=== PATIENT | male | born 1955 | race Caucasian/White ===

== ENCOUNTER 2023-05-11 01:46 | Day surgery (SDC) | payer OTHER, SELFPAY ==
[2023-05-02 08:33] VITALS: BMI 35.4
--- NOTE | 2023-05-10 17:29 | PM.HPGS ---
History of Present Illness History of Present Illness Consent: Risks, benefits, and alternatives have been discussed and questions answered. Patient agrees to proceed with procedure. Chief complaint: neoplasm screening Narrative: Aries Hays is a 67 year old male referred for colon cancer screening. Recent Cologuard test was positive.This is his 1st colonoscopy. Review of Systems Review of Systems: All systems reviewed & are unremarkable except as noted in HPI and below PMFSH Past Medical History Medical History HLD (hyperlipidemia) HTN (hypertension) Family History Family History Father Hypertension, Onset Age: 85 Family history of kidney disease Family history of diabetes mellitus in first degree relative Diabetes mellitus, Onset Age: 85 Social History Social History Years smoked: 40 Smoking status: Heavy tobacco smoker Alcohol intake: current Substance use type: does not use Living arrangements: with family Spiritual care concerns: No Meds Home Medications and Allergies Home Medications Medication Instructions Recorded Confirmed Type sildenafil 100 mg tablet (Viagra) 100 mg PO DAILY PRN sexual 02/05/22 05/11/23 Rx activity #20 tabs blood sugar diagnostic (OneTouch #300 ea 06/21/22 05/11/23 Rx Verio test strips) dulaglutide 1.5 mg/0.5 mL 1.5 mg (0.5 mL) subcut WEEKLY #2 mL 09/13/22 05/11/23 Rx subcutaneous pen injector (Trulicity) testosterone cypionate 200 mg/mL 400 mg (2 mL) IM MONTHLY #1 ea 12/20/22 05/11/23 Rx intramuscular kit syringe with needle 3 mL 23 x 1 #12 ea 02/16/23 05/11/23 Rx (BD Eclipse Luer-Tomi) glipizide 10 mg tablet See Rx Instructions .Route 03/01/23 05/11/23 Rx .COMPLEX #180 tabs lisinopril 40 mg tablet See Rx Instructions .Route 03/01/23 05/11/23 Rx .COMPLEX #90 tabs metoprolol succinate 25 mg See Rx Instructions .Route 03/01/23 05/11/23 Rx tablet,extended release 24 hr .COMPLEX #270 tabs pioglitazone 30 mg tablet See Rx Instructions .Route 03/01/23 05/11/23 Rx .COMPLEX #90 tabs pravastatin 20 mg tablet See Rx Instructions .Route 03/01/23 05/11/23 Rx .COMPLEX #90 tabs sitagliptin phosphate 100 mg See Rx Instructions .Route 03/01/23 05/11/23 Rx tablet (Januvia) .COMPLEX #90 tabs tamsulosin 0.4 mg capsule See Rx Instructions .Route 03/01/23 05/11/23 Rx .COMPLEX #30 caps Allergies Allergy/AdvReac Type Severity Reaction Status Date / Time No Known Allergies Allergy Verified 05/11/23 06:42 Exam Const: General: alert Orientation/consciousness: patient oriented x3 Resp: Auscultation: clear to auscultation bilaterally Cardio: Rhythm: regular rhythm GI: GI Palp: Yes Soft to palpation and No Tenderness to palpation present (GI) Neuro: General: patient oriented x3 Assessment and Plan Assessment and plan (1) Colon cancer screening: Code(s): Z12.11 - Encounter for screening for malignant neoplasm of colon Status: Acute Assessment and Plan: Colonoscopy with possible biopsy or polypectomy or cautery or injection of substances.
[2023-05-11 06:43] VITALS: BP 158/96; PULSE 90; RESP 17; TEMP 36.1; O2SAT 95; BMI 34.1
[2023-05-11] MEDS: LACTATED RINGERS 1,000 ML 150 ML IV CONT (06:57)
[2023-05-11 06:58] LABS: Glucose Point of Care 158 mg/dl (65-105)
--- NOTE | 2023-05-11 07:51 | WPDANESEPPF ---
Anes - Initial Pre Proc Eval Procedure: Operation Date: 05/11/23 08:00 Proposed Procedures p Screening Colonoscopy - Inder Berumen MD Date/Time: 05/11/23 07:51 Surgeon: Inder Berumen MD Pre Op Diagnosis: neoplasm screening Patient Data Age: 67 Gender: M Height: 1.88 m Weight: 120.6 kg Last Vital Signs Temp 96.9 F L 05/11/23 06:43 Pulse 90 05/11/23 06:43 Resp 17 05/11/23 06:43 BP 158/96 H 05/11/23 06:43 Pulse Ox 95 05/11/23 06:43 O2 Del Method Room Air 05/11/23 06:43 Allergies Allergy/AdvReac Type Severity Reaction Status Date / Time No Known Allergies Allergy Verified 05/11/23 06:42 Home Medications Medication Instructions Recorded Confirmed Type sildenafil 100 mg tablet (Viagra) 100 mg PO DAILY PRN sexual 02/05/22 05/11/23 Rx activity #20 tabs blood sugar diagnostic (OneTouch #300 ea 06/21/22 05/11/23 Rx Verio test strips) dulaglutide 1.5 mg/0.5 mL 1.5 mg (0.5 mL) subcut WEEKLY #2 mL 09/13/22 05/11/23 Rx subcutaneous pen injector ([employer]) testosterone cypionate 200 mg/mL 400 mg (2 mL) IM MONTHLY #1 ea 12/20/22 05/11/23 Rx intramuscular kit syringe with needle 3 mL 23 x 1 #12 ea 02/16/23 05/11/23 Rx (BD Eclipse Luer-Tomi) glipizide 10 mg tablet See Rx Instructions .Route 03/01/23 05/11/23 Rx .COMPLEX #180 tabs lisinopril 40 mg tablet See Rx Instructions .Route 03/01/23 05/11/23 Rx .COMPLEX #90 tabs metoprolol succinate 25 mg See Rx Instructions .Route 03/01/23 05/11/23 Rx tablet,extended release 24 hr .COMPLEX #270 tabs pioglitazone 30 mg tablet See Rx Instructions .Route 03/01/23 05/11/23 Rx .COMPLEX #90 tabs pravastatin 20 mg tablet See Rx Instructions .Route 03/01/23 05/11/23 Rx .COMPLEX #90 tabs sitagliptin phosphate 100 mg See Rx Instructions .Route 03/01/23 05/11/23 Rx tablet (Januvia) .COMPLEX #90 tabs tamsulosin 0.4 mg capsule See Rx Instructions .Route 03/01/23 05/11/23 Rx .COMPLEX #30 caps Laboratory Tests 05/11/23 06:51 POC Capillary Glucose 158 H mg/dl (65-105) Patient hx anesthesia problems: none Family hx anesthesia problems: none Results Review: All pre-operative results and documents have been reviewed as part of the pre-operative evaluation. [facility] Past Medical History Medical History HLD (hyperlipidemia) HTN (hypertension) Family History Family History Father Hypertension, Onset Age: 85 Family history of kidney disease Family history of diabetes mellitus in first degree relative Diabetes mellitus, Onset Age: 85 Social History Social History Years smoked: 40 Smoking status: Heavy tobacco smoker Alcohol intake: current Substance use type: does not use Living arrangements: with family Spiritual care concerns: No Anes - Eval Final PreProcedure Day of Procedure 05/11/23 07:51 Patient weight: obese Heart: regular rate and rhythm Lungs: clear to auscultation Airway: Mallampati scale class III Neurological: alert and oriented Last oral intake: >/= 8 hours ASA classification: III Emergent: no Anesthetic plan: proceed Anesthesia type and monitoring: general GIVS and standard monitoring Results Review: All pre-operative results and documents have been reviewed as part of the pre-operative evaluation. Informed Consent: The patient's anesthetic plan and its attendant risks and benefits were discussed with the patient/family/POA. Questions were solicited and answers provided to the satisfaction of the patient/family/POA.
[2023-05-11] MEDS: SIMETHICONE ORAL SUSPENSION 20 MG/0.3 ML 30 ML BOTTLE 0.6 ML IRRIGATION (08:08)
[2023-05-11 08:22] VITALS: BP 158/92; PULSE 88; RESP 19; O2SAT 95
[2023-05-11 08:32] VITALS: BP 144/95; PULSE 89; RESP 20; O2SAT 97
[2023-05-11 08:42] VITALS: BP 158/92; PULSE 85; RESP 18; O2SAT 97
== END 2023-05-11 08:50 | disposition home or self-care (01) ==
PROVIDERS: PCP Emergency Medicine; Visit Provider Internal Medicine Gastroenterology
PROC: 0DJD8ZZ Inspection of Lower Intestinal Tract, Via Natural or Artificial Opening Endoscopic (ICD-10-PCS; CPT 45378; principal; 2023-05-11 08:00)
DX: Z12.11 Encounter for screening for malignant neoplasm of colon (principal); K62.1 Rectal polyp; K63.5 Polyp of colon; K57.30 Diverticulosis of large intestine without perforation or abscess without bleeding; R19.5 Other fecal abnormalities; I10 Essential (primary) hypertension; E78.5 Hyperlipidemia, unspecified; F17.200 Nicotine dependence, unspecified, uncomplicated; E66.9 Obesity, unspecified; Z68.34 Body mass index [BMI] 34.0-34.9, adult; Z79.899 Other long term (current) drug therapy; Z79.890 Hormone replacement therapy; Z79.84 Long term (current) use of oral hypoglycemic drugs
CPT/HCPCS: 45385; 45380; 82948; 88305; J2704; J7120

== ENCOUNTER 2024-05-28 09:15 | Outpatient (RCR) | payer OTHER, SELFPAY | END 2024-05-28 10:43 | disposition home or self-care (01) | LOC: ANHDMC 09:15 | PROVIDERS: PCP Emergency Medicine; Visit Provider Emergency Medicine | DX: E11.65 Type 2 diabetes mellitus with hyperglycemia (principal); Z71.89 Other specified counseling | CPT/HCPCS: 36415; 80053; 80061; 82043; 82306; 83036; 95250; G0108 ==

== ENCOUNTER 2024-05-28 10:39 | Outpatient (CLI) | payer OTHER, SELFPAY ==
[2024-05-28 11:18] LABS: Alanine Aminotransferase 29 U/L (6-50); Albumin Level 4.6 g/dL (3.5-5.1); Alkaline Phosphatase 82 U/L (38-126); Anion Gap 8 mmol/L (4-12); Aspartate Amino Transferase 29 U/L (17-59); Bilirubin,Total 0.6 mg/dL (0.2-1.3); Blood Urea Nitrogen 31 mg/dL (9-20); Calcium 9.5 mg/dL (8.4-10.2); Carbon Dioxide 31 mmol/L (22-30); Chloride 100 mmol/L (98-107); Cholesterol 175 mg/dL (0-200); Estimated Glomerular Filt Rate 60; Glucose 161 mg/dL (65-110); HDL Direct 42 mg/dL; Potassium 4.8 mmol/L (3.4-5.0); Sodium 139 mmol/L (137-145); Triglycerides 186 mg/dL (<150)
[2024-05-28 11:29] LABS: LDL Cholesterol Direct 100 mg/dL
[2024-05-28 11:51] LABS: Creatinine Urine 112.1 mg/dL
[2024-05-28 12:24] LABS: Vitamin D 25 Hydroxy 34.2 ng/mL
[2024-05-28 12:33] LABS: MALB Creatinine Ratio 454.1 mg/g (0-30)
[2024-05-30 12:12] LABS: Hemoglobin A1C 9.1 % (<5.7)
== END 2024-05-28 10:40 | disposition home or self-care (01) ==
PROVIDERS: PCP Emergency Medicine; Visit Provider Emergency Medicine
DX: E11.9 Type 2 diabetes mellitus without complications (principal); E78.5 Hyperlipidemia, unspecified; E55.9 Vitamin D deficiency, unspecified
CPT/HCPCS: 36415; 80053; 80061; 82043; 82306; 83036

== ENCOUNTER 2024-06-19 09:04 | Outpatient (RCR) | payer OTHER, SELFPAY | END 2024-09-10 10:14 | disposition home or self-care (01) | LOC: ANHDMC 09:04 | PROVIDERS: PCP Emergency Medicine; Visit Provider Emergency Medicine | DX: E11.65 Type 2 diabetes mellitus with hyperglycemia (principal); Z71.89 Other specified counseling | CPT/HCPCS: G0108 ==

== ENCOUNTER 2025-06-25 09:16 | Outpatient (CLI) | payer MEDICARE, SELFPAY ==
--- OUTSIDE RECORDS SUMMARY | 2025-06-25 09:37 | XMS_ITS | Encounter Summary ---
Author Organization [facility] Address [address] [place] [address] Care Team Providers Care Board Certified Orthodontist Name Role Phone Adriel Soriano MD Primary Care Provider [phone] Encounter Details Date Type Department Care Team (Late st Contact Info) Description 01/02/2002 Outpatient Historical [facility] Internal Medicine [facility] [address] [facility] [address] [place] [phone] [place] [address] [place] [address] Social History Tobacco Use Types Packs/Day Years Used Date Smoking Tobacco: Never Assessed Sex and Gender Information Value Date Recorded Sex Assigned at Not on file 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
--- OUTSIDE RECORDS SUMMARY | 2025-06-25 09:37 | XMS_ITS | Clinical Summary ---
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 Gender Identity Not on file Sexual Orientation Not on file Plan of Treatment Health Maintenance Due Date Last Done Comments DTAP/TDAP/TD VACCINES (1 - Tdap) 1973 COLORECTAL SCREENING 1999 Colorectal Cancer Screening 1999 FIT-DNA Q 3 years 1999 FIT/FOBT Q 1 year 1999 Flex Sig/CT Colonography Q 5 years 1999 PNEUMOCOCCAL VACCINE 50+ YEARS (1 of 1 - PCV) 08/19/20 04 ZOSTER VACCINE (1 of 2) 2004 INFLUENZA VACCINE (#1) 2025 RSV VACCINE (60+ or ) (1 - 1-dose 75+ series) 2029 Care Teams Commodity Broker Relationship Specialty [place] [address] [place], [place] [id number] PCP - General 08/20/02
--- OUTSIDE RECORDS SUMMARY | 2025-06-25 09:37 | XMS_ITS | Patient Health Record ---
Author Organization [facility] Address [address] [place] [address] Care Team Providers Care Count Room Clerk Name Role Phone Angelo Jason Primary Care Provider [phone] Reason For Referral No Information Immunizations Vaccine Route Administration Date Status Comme nts COVID-19 Moderna 1ST IM Intramuscular 12/25/2020 Administered EUA date 0. Screening reviewed and consent signed. Patient tolerated well. COVID-19 Moderna 2nd IM Intramuscular 01/22/2021 Administered Plan Of Treatment No Information Insurance Providers Payer Name Payer Address Payer Phone Subscriber Number Group Number Insured Name Patient Relationship to Insured Coverage Start Date Coverage End Date [employer] [address] [place] [id number] Aries Hays Self - patient is the insured 1
--- OUTSIDE RECORDS SUMMARY | 2025-06-25 09:37 | XMS_ITS | Encounter Summary ---
[facility] Organization [facility] Address [address] [place] [address] Care Team Providers Care Merchandising Representative Name Role Phone Adriel Soriano MD Primary Care Provider [phone] Encounter Details Date Type Department Care Team (Late st Contact Info) Description 08/14/2002 Outpatient Historical [facility] Support Serv. ([facility]) [address] 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
--- OUTSIDE RECORDS SUMMARY | 2025-06-25 09:37 | XMS_ITS | Encounter Summary ---
Author Organization [facility] Address [address] [place] [address] Care Team Providers Care Engine Generator Assembler Name Role Phone Adriel Soriano MD Primary Care Provider [phone] Encounter Details Date Type Department Care Team (Late st Contact Info) Description 02/15/2000 Outpatient Historical [facility] Internal Medicine [facility] [address] [address] [facility] [address] [place] [phone] [place] [address] [place] [address] Social History Tobacco Use Types Packs/Day Years Used Date Smoking Tobacco: Never Assessed Sex and Gender Information Value Date Recorded Sex Assigned at Not on file 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
--- OUTSIDE RECORDS SUMMARY | 2025-06-25 09:37 | XMS_ITS | Clinical Summary ---
Author Organization [facility] [address] Address [address] [place] [phone] Care Team Providers Care Commercial Horticulture Instructor Name Role Phone Lawrence Ibarra MD Primary Care Provide r Allergies No known active allergies Medications glipiZIDE (GLUCOTROL) 10 mg tablet 3 Active lisinopriL (PRINIVIL,ZESTR IL) 40 mg tablet 3 Active pioglitazone (ACTOS) 30 mg tablet 3 Active pravastatin (PRAVACHOL) 20 mg tablet 3 Active Januvia 100 mg tablet 3 Active OneTouch Verio test strips strip 3 Active SEMGLEE-yfgn 100 unit/mL (3 mL) pen for injection Inject 10,000 Units under the skin daily 4 Active tamsulosin (FLOMAX) 0.4 mg extended release capsule Take 1 capsule (0.4 mg total) by mouth daily 4 Active Ozempic 2 mg/dose (8 mg/3 mL) pen injector injection Inject 2 mg under the skin daily 4 Active testosterone cypionate (DEPO-TESTOTERO NE) 200 mg/mL injection Inject 1 mL (200 mg total) into the muscle as instructed every 28 (twenty-eight) days 5 Active metoprolol XL (TOPROL-XL) 100 mg 24 hr tablet Take 1 tablet (100 mg total) by mouth daily 5 Active Mounjaro 7.5 mg/0.5 mL pen injector injection Inject 0.5 mL (7.5 mg total) under the skin Active Hospital, Clinic, or Other Facility Administered Medication Ordered Dose Route Frequency Start Date End Date Status lidocaine (XYLOCAINE) 20 mg/mL (2 %) injection 3 mLIndications:Admini stration of Local Anesthesia 3 mL One-Time Injection 06/19/2025 Ended methylPREDNISolone acetate (DEPO-medrol) injection 80 mgIndications:Primar y osteoarthritis of right knee 80 mg intra-artic One-Time Injection 06/19/2025 5 Ended Active Problems No known active problems Encounters Date Type Department Care Team Description 06/20/2025 Telephone [facility] Orthopedic and Sports Medicine [address] [place] [phone] Jensen Guevara PA 06/19/2025 10:15 AM CDT Office Visit [facility] Orthopedic and Sports Medicine [address] [place] [phone] Jensen Guevara PA Primary osteoarthritis of right knee (Primary Dx) from Last 3 Months Surgical History Surgery Date Site/Laterality Comments HERNIA REPAIR CARPAL TUNNEL RELEASE Medical History Medical History Date Comments Diabetes mellitus (HCC) Family History Medical History Relation Name Comments No Known Problems Brother No Known Problems Daughter No Known Problems Father No Known Problems Mother No Known Problems Sister Relation Name Status Comments Brother Daughter Father Mother Sister Social History Tobacco Use Types Packs/Day Years Used Date Smoking Tobacco: Former Cigarettes Tobacco Cessation:Counseling Given: Not Answered AUDIT-C Answer Date Recorded Q1: How often do you have a drink containing alcohol? Never 06/19/2025 Q2: How many drinks containi ng alcohol do you have on a typical day when you are drinking? Patient does not drink Q3: How often do you have si x or more drinks on one occasion? Never 06/19/2025 Sex and Gender Information Value Date Recorded Sex Assigned at Not on file Legal Sex Male 3:08 PM CDT Gender Identity Not on file Sexual Orientation Not on file Obstetrics History Last Filed Vital Signs Vital Sign Reading Time Taken Comments Blood Pressure 132/73 06/19/2025 10:26 AM CDT Pulse 79 06/19/2025 10:26 AM CDT Temperature - - Respiratory Rate - - Oxygen Saturation - - Inhaled Oxygen Concentration - - Weight 127 kg (280 lb) 06/19/2025 10:26 AM CDT Height 186.7 cm (6' 1.5) 06/19/2025 10:26 AM CD T Body Mass Index 36.44 06/19/2025 10:26 AM CDT Plan of Treatment Health Maintenance Due Date Last Done Comments Colon Cancer Screening-Colonoscopy 1954 Depression Screening 1954 Fall Risk Assessment 1954 Hepatitis C Screening 1954 DTaP/Tdap/Td Vaccine (1 - Tdap) 1965 Hepatitis B Screening 1972 Pneumococcal vaccine 65+ (1 of 1 - PCV) 2004 Zoster Vaccine (1 of 2) 2004 Well Visit 65+ 2019 Covid-19 Vaccine ( season) 2024 11/08/2021, 01/22/2021, 12/25/2020 Influenza Vaccine (#1) 2025 10/28/2022 Abdominal Aortic Aneurysm (A AA) Screen Completed 11/02/2024 Procedures Procedure Name Priority Date/Time Associated Diagnosis Comments [place] ARTHROCENTESIS ASPIR&/INJ MAJOR JT/BURSA W/O US Routine 06/19/2025 10:15 AM CDT Primary osteoarthritis of right knee CT ABDOMEN PELVIS WO CONTRAST Schedule Routine, Read Routine (OP Routine) 11/02/2024 6:28 AM TECHNICAL MARKETING ENGINEER Abdominal pain, unspecified abdominal location from Last 3 Months or Most Recently Relevant to Health Maintenance Results * [place] ARTHROCENTESIS ASPIR&/INJ MAJOR JT/BURSA W/O US (06/19/2025 10:15 AM CDT) Narrative Jensen Guevara PA - 06/19/2025 10:15 AM CDT Jensen Guevara PA 06/19/2025 10:45 AM Large Joint (Hip, Knee, Shoulder) Injection: R knee Performed by: Jensen Guevara PA Authorized by: Jensen Guevara PA Large Joint Injection/Aspiration: Consent Given by: Patient Timeout: prior to procedure the correct patient, procedure, and site was verified Verbal consent obtained: Yes Supporting Documentation: Indications: Pain Procedure Details: Location: Knee Site: R knee Prep: patient was prepped using a clean technique Needle Size: 22 G Approach: Anteromedial Ultrasound guided: No Fluroscopic guidance: No Medications: 80 mg methylPREDNISolone acetate 80 mg/mL; 3 mL lidocaine 20 mg/mL (2 %) Patient tolerance: Patient tolerated the procedure well with no immediate complications us Jensen HERNANDEZ IN CLINIC/BEDSIDE ORDERABLE S Final Result * CT Abdomen Pelvis WO Contrast (11/02/2024 6:28 AM TECHNICAL MARKETING ENGINEER) Anatomical Region Laterality Modality Body N/A Computed Tomogra phy 11/04/2024 11:5 0 AM TECHNICAL MARKETING ENGINEER Narrative 11/04/2024 11:53 AM TECHNICAL MARKETING ENGINEER EXAM DESCRIPTION: CT ABDOMEN PELVIS WO CONTRAST REASON FOR STUDY: R10.9 Per patient, gurgling noise mostly on LLQ during breathing for many years. Hx of Hernia with hernia repair 30 years ago. TECHNIQUE: CT scan of the abdomen and pelvis performed without intravenous and without oral contrast using helical scanning technique. Reconstructed coronal and sagittal MPR images reviewed. All images stored on PACS. Automated exposure control was used as a dose optimization technique for this examination. COMPARISON: None FINDINGS: The sensitivity for detection of visceral lesions is diminished without the use of intravenous contrast. LOWER CHEST: No significant pulmonary abnormalities. No effusion. LIVER: Normal size. No identified cystic or solid masses. GALLBLADDER: Multiple stones are present in the gallbladder lumen. No gallbladder wall thickening or pericholecystic fluid is seen. BILE DUCTS: No intrahepatic or extrahepatic ductal dilatation. SPLEEN: Normal size. No focal lesions. PANCREAS: No identified cystic or solid masses. No significant calcifications. No adjacent inflammation or peripancreatic fluid collections. Pancreatic duct not dilated. ADRENALS: Normal. KIDNEYS/URINARY TRACT: There is an 11 mm cyst in the mid left kidney. No stones. No hydronephrosis or hydroureter. Urinary bladder is partially decompressed with nonspecific bladder wall thickening noted.. GI: No dilated bowel loops. No obvious wall thickening. Numerous sigmoid diverticular seen. There is no evidence of acute diverticulitis. PERITONEUM: No ascites or free air. RETROPERITONEUM: No mass or adenopathy. REPRODUCTIVE: No significant abnormality. VASCULATURE: No abdominal aortic aneurysm. MUSCULOSKELETAL: No significant abnormality. OTHER: There are bilateral fat containing inguinal hernias. IMPRESSION: 1. Diverticulosis without evidence of diverticulitis. 2. Gallstones without evidence of acute cholecystitis. 3. Simple left renal cyst. 4. Fat containing bilateral inguinal hernias. THIS IS AN ELECTRONICALLY VERIFIED FINAL REPORT 11/04/2024 11:53 AM - Electronically signed by Fausto Mandujano M.D. BS: RAMON Report ID: [id number] Reading Location: [id number] Procedure Note Fausto Mandujano MD - 11/04/2024 EXAM DESCRIPTION: CT ABDOMEN PELVIS WO CONTRAST REASON FOR STUDY: R10.9 Per patient, gurgling noise mostly on LLQ during breathing for many years.Hx of Hernia with hernia repair 30 years ago. TECHNIQUE: CT scan of the abdomen and pelvis performed without intravenousand without oral contrast using helical scanning technique. Reconstructed coronal and sagittal MPR images reviewed. All images stored on PACS.Automated exposure control was used as a dose optimization technique for this examination. COMPARISON: None FINDINGS: The sensitivity for detection of visceral lesions is diminished without the use of intravenous contrast. LOWER CHEST: No significant pulmonary abnormalities. No effusion. LIVER: Normal size. No identified cystic or solid masses. GALLBLADDER: Multiple stones are present in the gallbladder lumen. No gallbladder wall thickening or pericholecystic fluid is seen. BILE DUCTS: No intrahepatic or extrahepatic ductal dilatation. SPLEEN: Normal size. No focal lesions. PANCREAS: No identified cystic or solid masses. No significant calcifications. No adjacent inflammation or peripancreatic fluidcollections. Pancreatic duct not dilated. ADRENALS: Normal. KIDNEYS/URINARY TRACT: There is an 11 mm cyst in the mid left kidney.No stones. No hydronephrosis or hydroureter. Urinary bladder is partially decompressed with nonspecific bladder wall thickening noted.. GI: No dilated bowel loops. No obvious wall thickening. Numeroussigmoid diverticular seen. There is no evidence of acute diverticulitis. PERITONEUM: No ascites or free air. RETROPERITONEUM: No mass or adenopathy. REPRODUCTIVE: No significant abnormality. VASCULATURE: No abdominal aortic aneurysm. MUSCULOSKELETAL: No significant abnormality. OTHER: There are bilateral fat containing inguinal hernias. IMPRESSION: 1. Diverticulosis without evidence of diverticulitis. 2. Gallstones without evidence of acute cholecystitis. 3. Simple left renal cyst. 4. Fat containing bilateral inguinal hernias. THIS IS AN ELECTRONICALLY VERIFIED FINAL REPORT 11/04/2024 11:53 AM - Electronically signed by Fausto Mandujano M.D. BS: BS Report ID: [id number] Reading Location: [place] [address] Lawrence Ibarra MD IMG CT PROCEDURES Fin al Result from Last 3 Months or Most Recently Relevant to Health Maintenance Insurance [facility] MEDICARE [facility] Address[facility] [id number] [place] [phone] Care Teams Commercial Horticulture Instructor Relationship Specialty Start Date End Date Lawrence Ibarra MD [address] [place] [address] PCP - General Emergency Medicine 09/16/23
--- OUTSIDE RECORDS SUMMARY | 2025-06-25 09:37 | XMS_ITS | Encounter Summary ---
Author Organization [facility] Address [address] [place] [address] Care Team Providers Care Export Sales Manager Name Role Phone Adriel Soriano MD Primary Care Provider [phone] Encounter Details Date Type Department Care Team (Late st Contact Info) Description 12/19/2001 Outpatient Historical [facility] Internal Medicine [facility] [address] [facility] [address] [facility] [address] [place] [phone] [place] [address] [place] [address] Social History Tobacco Use Types Packs/Day Years Used Date Smoking Tobacco: Never Assessed Sex and Gender Information Value Date Recorded Sex Assigned at Not on file 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
--- OUTSIDE RECORDS SUMMARY | 2025-06-25 09:37 | XMS_ITS | Referral Summary ---
Author Organization [address] Address [address] [place] [phone] Care Team Providers Care Orthodontic Assistant Name Role Phone Lawrence Ibarra MD Primary Care Provide r Encounters Date Type Department Care Team Description 06/20/2025 Telephone [facility] Orthopedic and Sports Medicine [address] [place] [phone] Jensen Guevara PA 06/19/2025 10:15 AM CDT Office Visit [facility] Medical [facility] Orthopedic and Sports Medicine [address] [place] [phone] Jensen Guevara PA Primary osteoarthritis of right knee (Primary Dx) from Last 3 Months Allergies No known active allergies Medications glipiZIDE [...] mL (7.5 mg total) under the skin 5 Active Hospital, Clinic, or Other Facility Administered Medication Ordered Dose Route Frequency Start Date End Date Status lidocaine (XYLOCAINE) 20 mg/mL (2 %) injection 3 mLIndications:Admini stration of Local Anesthesia 3 mL One-Time Injection 06/19/2025 5 Ended methylPREDNISolone acetate (DEPO-medrol) injection 80 mgIndications:Primar y osteoarthritis of right knee 80 mg intra-artic One-Time Injection 06/19/2025 5 Ended Active Problems No known active problems Social History Tobacco Use Types Packs/Day Years [...] on file Sexual Orientation Not on file Last Filed Vital Signs Vital Sign Reading [...] 06/19/2025 10:26 AM CDT Plan of Treatment Not on file Procedures Procedure Name Priority Date/Time Associated Diagnosis Comments DC ARTHROCENTESIS ASPIR&/INJ MAJOR JT/BURSA W/O US Routine 06/19/2025 10:15 AM CDT Primary osteoarthritis of right knee CT ABDOMEN PELVIS WO CONTRAST Schedule Routine, Read Routine (OP Routine) 11/02/2024 6:28 AM STRUCTURAL IRONWORKER Abdominal pain, unspecified abdominal location from Last 3 Months or Most Recently Relevant to Health Maintenance Results * DC ARTHROCENTESIS ASPIR&/INJ MAJOR JT/BURSA W/O US (06/19/2025 [...] the procedure well with no immediate complications Jensen HERNANDEZ IN CLINIC/BEDSIDE ORDERABLE S Final Result * CT Abdomen Pelvis WO Contrast (11/02/2024 6:28 AM STRUCTURAL IRONWORKER) Anatomical Region Laterality Modality Body N/A Computed Tomogra phy 11/04/2024 11:5 0 AM STRUCTURAL IRONWORKER Narrative 11/04/2024 11:53 AM STRUCTURAL IRONWORKER EXAM DESCRIPTION: CT ABDOMEN PELVIS WO CONTRAST [...] Fausto Mandujano M.D. BS: RAMON Report ID: [id number] Reading Location: [id number] Procedure Note Fausto Mandujano MD - 11/04/2024 [...] Fausto Mandujano M.D. BS: RAMON Report ID: [id number] Reading Location: [place] [address] Lawrence Ibarra MD IMG CT PROCEDURES Fin al Result from Last 3 Months or Most Recently Relevant to Health Maintenance Insurance [facility] MEDICARE ADVANTAGE [facility] Address: [address] [address] Care Teams Orthodontic Assistant Relationship Specialty Start Date End Date Lawrence Ibarra MD [address] [place] [address] PCP - General Emergency Medicine 09/16/23
--- OUTSIDE RECORDS SUMMARY | 2025-06-25 09:37 | XMS_ITS | Encounter Summary ---
Author Organization [facility] Address [address] [place] [address] Care Team Providers Care Mixing And Molding Machine Operator Name Role Phone Adriel Soriano MD Primary Care Provider [phone] Encounter Details Date Type Department Care Team (Late st Contact Info) Description 01/29/2003 Outpatient Historical [facility] Internal Medicine [facility] [address] 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
--- OUTSIDE RECORDS SUMMARY | 2025-06-25 09:37 | XMS_ITS | Clinical Summary ---
Author Organization [facility] Address [address] [place] [address] Care Team Providers Care Underwater Hunter Trapper Name Role Phone Unavailable Primary Care Provider Unavailabl e Social History Tobacco Use Types Packs/Day Years Used Date Smoking Tobacco: Never Assessed Sex and Gender Information Value Date Recorded Sex Assigned at Not on file Legal Sex Male 7:22 PM CDT Gender Identity Not on file Sexual Orientation Not on file Plan of Treatment Health Maintenance Due Date Last Done Comments Colorectal Cancer Screening Colonoscopy (10 Years) 1954 Hepatitis C 1972 DTaP, Tdap and Td Vaccines ( 1 - Tdap) 1973 Pneumococcal Vaccine: 50+ Ye ars (1 of 1 - PCV) 2004 Zoster Vaccines (1 of 2) 2004 COVID-19 Vaccine ( - 2023-2 5 season) 2024 RSV Immunization or 60+ Years (1 - 1-dose 75+ series) 2029 Meningococcal B Vaccine Aged Out No l onger eligible based on patient's age to complete this topic Meningococcal Vaccine Aged Out No guanakito ryan eligible based on patient's age to complete this topic RSV Immunizations Under 20 Months Aged Out No longer eligible based on patient's age to complete this topic
--- OUTSIDE RECORDS SUMMARY | 2025-06-25 09:37 | XMS_ITS | Encounter Summary ---
Author Organization [employer] Address [address] [place] [address] Care Team Providers Care Water Jet Loom Fixer Name Role Phone Adriel Soriano MD Primary Care Provider [phone] Encounter Details Date Type Department Care Team (Latest Contact Info) Description 08/20/2002 Outpatient Historical [facility] Aristides Colvin MD [address] [facility] [address], [place] [phone] UMBILICAL HERNIA W OBSTR (Primary Dx) Social History Tobacco Use Types Packs/Day Years Used Date Smoking Tobacco: Never Assessed Sex and Gender Information Value Date Recorded Sex Assigned at Not on file Legal Sex Male 3:19 AM MANAGER JAVA Gender Identity Not on file Sexual Orientation Not on file documented as of this encounter Plan of Treatment Not on file documented as of this encounter Visit Diagnoses Diagnosis Umbilical hernia with obstruction- Primary documented in this encounter Care Teams Water Jet Loom Fixer Relationship Specialty [place] [address] [facility] [place] [address] PCP - General 08/20/02 documented as of this encounter
--- NOTE | 2025-07-15 14:02 | WPDHOMESLEEP ---
Sleep Study - Home Unattended Date of Study: 06/25/25 Ordering Provider: Lawrence Ibarra MD Interpreting Provider: Magdalena Thompson, DO Home Sleep Study Type: Watch PAT Height: 1.88 m Weight: 127.006 kg Body Mass Index: 35.9 Neck Circumference (inches): 18.25 [place]: 5 Reason for Sleep Study Daytime hypersomnia Sleep History The patient is a 69-year-old male who had a sleep study ordered by his primary care physician for evaluation of sleep apnea. The patient occasionally snores, and it is occasionally loud enough that others complain. He occasionally has trouble sleeping when he has a cold. He denies waking up gasping for air throughout the night. He rarely has breathing problems at night observed by himself or others. He rarely sweats excessively at night. He occasionally has heart palpitations or irregular heartbeats during the night. He occasionally falls asleep during the day, but rarely while driving. He denies sleep paralysis, cataplexy, and hypnagogic/hypnopompic hallucinations. He denies having trouble at school or work due to sleepiness. He rarely has nightmares. He occasionally remembers his dreams. He denies having fears of going to sleep. He rarely has thoughts racing through his mind. He occasionally feels sad, depressed, and anxious. He occasionally has muscular tension. He rarely notices parts of his body jerk. He denies kicking during the night. He denies having crawling and aching feelings in his legs and denies having leg pain during the night. He rarely grinds his teeth during sleep but never awakens with morning jaw pain. He is rarely bothered by pain during the day but never awakened by pain during the night. He occasionally wakes up feeling stiff in the morning. He occasionally wakes up with sore or achy muscles. He occasionally wakes up with pain in the neck, spine, and other joints. He goes to bed at 10 p.m. every night. The amount of time it takes for him to fall asleep is variable. He wakes up 3 to 4 times throughout the night to urinate and is able to fall back asleep within 5 minutes. He wakes up at 7 a.m. every morning. He typically gets 4 to 5 hours of sleep per night. He will stay in bed for 15 minutes after waking up in the morning. He currently lives with his and child. He denies consuming any caffeinated beverages within two hours of bedtime. He denies engaging in physical exercise before bedtime. He will watch television before falling asleep. He denies taking naps in the afternoon or the evening. He has one cup of a caffeinated beverage per day. He is a former smoker. He denies alcohol use. He does use an unspecified recreational drug. 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) Polyosteoarthritis, unspecified Morbid obesity due to excess calories Essential (primary) hypertension HLD (hyperlipidemia) HTN (hypertension) Family History Family History Father Hypertension, Onset Age: 85 Family history of kidney disease Family history of diabetes mellitus in first degree relative Diabetes mellitus, Onset Age: 85 Social History Social History Years smoked: 40 Smoking status: Former smoker Alcohol intake: current Alcohol use details: rarely Substance use: current Substance use type: marijuana Other substance usage details: gummy once in a while Do You Feel Safe in your Home?: Yes Lack of Transportation: No Lack of Food: Never True Current Housing: Decline to Answer Concerned About Future Housing: Decline to Answer Difficulty Paying Gas/Electric Bills: Decline to Answer Difficulty Paying for Meds: Decline to Answer Currently Unemployed: Decline to Answer Education: Decline to Answer Difficulty w/ Childcare or Family Care: Decline to Answer Living arrangements: with family Spiritual care concerns: No Medications Home Medications ?Medication ?Instructions ?Recorded ?Confirmed ?Type syringe with needle 3 mL 23 x 1 #12 ea 02/16/23 07/16/25 Rx (BD Eclipse Luer-Tomi) testosterone cypionate 200 mg/mL 200 mg IM MONTHLY 01/31/25 07/16/25 History intramuscular oil lisinopril 40 mg tablet See Rx Instructions .Route 04/05/25 07/16/25 Rx .COMPLEX #90 tabs pioglitazone 30 mg tablet See Rx Instructions .Route 04/17/25 07/16/25 Rx .COMPLEX #90 tabs pravastatin 20 mg tablet See Rx Instructions .Route 04/17/25 07/16/25 Rx .COMPLEX #90 tabs tamsulosin 0.4 mg capsule See Rx Instructions .Route 04/19/25 07/16/25 Rx .COMPLEX #90 caps metoprolol succinate 100 mg 100 mg PO DAILY #90 tabs 04/30/25 07/16/25 Rx tablet,extended release 24 hr furosemide 40 mg tablet (Lasix) 40 mg PO DAILY #90 tabs 05/13/25 07/16/25 Rx potassium chloride 10 mEq 10 meq PO DAILY #90 tabs 05/13/25 07/16/25 Rx tablet,extended release (Klor-Con) blood sugar diagnostic (Contour #100 ea 06/11/25 07/16/25 Rx Next Test Strips) blood-glucose meter (Contour Next #1 ea 06/11/25 07/16/25 Rx Gen Meter) lancets (Microlet Lancet) #100 ea 06/11/25 07/16/25 Rx lancing device with lancets kit #1 ea 06/11/25 07/16/25 Rx (Microlet Next Lancing Device kit) glipizide 10 mg tablet See Rx Instructions .Route 06/13/25 07/16/25 Rx .COMPLEX #180 tabs tirzepatide 10 mg/0.5 mL 10 mg (0.5 mL) subcut WEEKLY #6 mL 06/21/25 07/16/25 Rx subcutaneous pen injector (Mounjaro) insulin glargine 100 unit/mL (3 32 unit (0.32 mL) subcut QAM #15 mL 07/16/25 Rx mL) subcutaneous pen (Lantus Solostar U-100 Insulin) Sleep Procedure The sleep study was completed using SaaSAssurancePAT a technically adequate device with seven channels: peripheral arterial tone, actigraphy, body position, snore, respiratory movement, pulse oximetry, sleep staging, and heart rate. Prior to using the device, the patient received verbal and written instructions for its application and was provided with the help desk phone number for additional telephonic instruction with 24-hour availability of qualified personnel to answer questions. The study was scored using CMS guidelines. Sleep Architecture The total recording time is 5 hrs, 43 min. The total sleep time is 4 hrs, 34 min. Sleep latency is 6 minutes. REM latency is 87 minutes. The patient had 11 episodes of waking. Sleep architecture shows 8.6% deep sleep, 72.4% light sleep, and (as % Total Sleep Time) showed NREM (Light 72.4%; Deep 8.6%), and a 19.0% stage REM. The patient spent 47.1% of total sleep time in the supine position. Sleep efficiency was 79.88. Respiratory Analysis The overall AHI (pAHI 4%:) is 45.9.The overall AHI (pAHI 3%:) is 53.9. The central AHI is 6.0. The AHI was 52.4 in NREM and 60.4 in REM sleep. The AHI was 67.1 in Supine and 42.1 in Non-supine sleep. Percent of Johan Barrow respirations is 0.0. Oximetry Data The oxygen desaturation index (OFE 4%:) is 40.3. The mean saturation is 85%, and the lowest saturation is 65%. Time spent with saturation < 88% is 179.8 minutes. Snoring Profile Snoring average intensity is 41 dB. The patient snored above 45 decibels for 10.0 minutes, 3.6% of sleep time. Cardiac Profile The average pulse rate is 75 beats per minutes. The lowest pulse rate is 54 bpm. The highest pulse rate reported is 97 bpm. Atrial fibrillation was not detected. Premature beats occur 1.5 per minute. Assessment and Plan Assessment and Plan (1) ANNE (obstructive sleep apnea): Code(s): G47.33 - Obstructive sleep apnea (adult) (pediatric) Status: Acute Assessment and Plan: The patient had an overall AHI of 45.9 with desaturation down to 65%. This is consistent with severe sleep apnea. The patient spent 179.8, 65.6% of total recording time with an SpO2<88%. Due to the severity of the patient's sleep apnea and amount of time he spent hypoxemic, he is not a candidate for AutoPAP. The patient may require supplemental oxygen along with CPAP to ensure that the patient's SpO2 remains above 90%. I recommend that the patient have a CPAP titration study with the use of a hypnotic to ensure we obtain enough sleep data and find an optimal pressure setting. Data The data obtained during this sleep study is adequate for interpretation. Certification This sleep study has been reviewed by a board certified sleep medicine physician.
[2025-07-16 15:53] VITALS: BMI 35.9
== END 2025-06-26 13:34 | disposition home or self-care (01) ==
LOC: ANHCSM 09:18
PROVIDERS: PCP Emergency Medicine; Visit Provider Emergency Medicine
DX: R40.0 Somnolence (principal); R06.83 Snoring; G47.33 Obstructive sleep apnea (adult) (pediatric)
CPT/HCPCS: 95800